=== PATIENT | female | born 1940 | race Caucasian/White ===

== ENCOUNTER 2022-03-24 14:52 | Emergency (ER) | payer MEDICARE, SELFPAY ==
[2022-03-24 15:02] VITALS: BP 107/72; BP 127/79; PULSE 102; PULSE 105; RESP 30; TEMP 36.4; O2SAT 93; BMI 16.2
--- NOTE | 2022-03-24 15:13 | MHC.CM.ED ---
Received notification from Hallie at [facility] that patient is from their facility. Referral made to [facility] via [facility] so facility can follow for d/c needs.
--- NOTE | 2022-03-24 15:27 | ED.GENADULT ---
HPI - General Adult General Chief complaint: Dyspnea <SARABJIT Rosa - Last Filed: 03/24/22 17:49> Stated complaint: LOW O2SAT,LUNG CA,FROM SNF,97% ON NEB PER EMS <SARABJIT Rosa - Last Filed: 03/24/22 17:49> Time Seen by Provider: 03/24/22 15:27 <SARABJIT Rosa - Last Filed: 03/24/22 17:49> Source: patient and EMS <SARABJIT Rosa Last Filed: 03/24/22 17:49> Mode of arrival: EMS <SARABJIT Rosa Last Filed: 03/24/22 17:49> Limitations: no limitations <SARABJIT Rosa Last Filed: 03/24/22 17:49> History of Present Illness HPI narrative: Patient is an 81 year old female presenting to the emergency department today with increased SOB. Patient states that she has a history of advanced staged lung cancer and was discharged from [facility] after having fluid drained off of her lungs. Patient denies any dizziness, lightheadedness, abdominal pain, nausea, vomiting, fever, chills, blurry vision, double vision, loss of vision, chest pain, back pain, night sweats, pain with urination, increased urinary frequency, increased urinary urgency, blood in her urine or stool, syncope or a near syncopal episode, recent trauma or falls, bowel incontinence, bladder incontinence, bowel retention, bladder retention, or any other complaints at this time. <SARABJIT Rosa - Last Filed: 03/24/22 17:49> Onset (ago): hour(s) <SARABJIT Rosa - Last Filed: 03/24/22 17:49> Exacerbating factors: none <SARABJIT Rosa - Last Filed: 03/24/22 17:49> Associated symptoms: denies other symptoms <SARABJIT Rosa - Last Filed: 03/24/22 17:49> Treatments prior to arrival: none <SARABJIT Rosa Last Filed: 03/24/22 17:49> Related Data Allergies/adverse reactions: Allergies Allergy/AdvReac Type Severity Reaction Status Date / Time No Known Allergies Allergy Verified 03/24/22 15:29 <SARABJIT Rosa - Last Filed: 03/24/22 17:49> Review of Systems Constitutional: Constitutional: Reports no additional constitutional complaints, Denies chills, Denies fever(s) and Denies night sweats <SARABJIT Rosa Last Filed: 03/24/22 17:49> Eyes: Eyes: Reports no additional eye complaints, Denies blurry vision, Denies change in vision, Denies diplopia, Denies eye discharge, Denies loss of vision and Denies eye pain <SARABJIT Rosa - Last Filed: 03/24/22 17:49> ENT: Denies dizziness <SARABJIT Rosa Last Filed: 03/24/22 17:49> Cardiovascular: Cardiovascular: Reports no additional cardiovascular complaints, Denies chest pain, Denies lightheadedness, Denies Loss of Consciousness and Reports dyspnea <SARABJIT Rosa Last Filed: 03/24/22 17:49> Respiratory: Respiratory: Reports no additional respiratory complaints and Reports dyspnea <SARABJIT Rosa - Last Filed: 03/24/22 17:49> Gastrointestinal: Gastrointestinal: Reports no additional gastrointestinal complaints, Denies abdominal pain, Denies melena, Denies hematochezia, Denies change in bowel habits and Denies change in stool character <SARABJIT Rosa Last Filed: 03/24/22 17:49> Genitourinary: Genitourinary: Denies hematuria, Denies urinary frequency, Denies dysuria, Denies urinary incontinence, Denies urinary hesitancy and Denies urinary urgency <SARABJIT Rosa Last Filed: 03/24/22 17:49> Musculoskeletal: Musculoskeletal: Reports no additional musculoskeletal complaints, Denies numbness and Denies tingling <SARABJIT Rosa - Last Filed: 03/24/22 17:49> Neurologic: Denies dizziness, Denies loss of vision, Denies numbness and Denies tingling <SARABJIT Rosa Last Filed: 03/24/22 17:49> Psychiatric: Psychiatric: Reports no additional psychiatric complaints <SARABJIT Rosa Last Filed: 03/24/22 17:49> Endocrine: Endocrine: Reports no additional endocrine complaints <SARABJIT Rosa - Last Filed: 03/24/22 17:49> Hematologic/Lymphatic: Hematologic/Lymphatic: Reports no additional hematologic/lymphatic complaints <SARABJIT Rosa - Last Filed: 03/24/22 17:49> Allergic/Immunologic: Allergic/Immunologic: Reports no additional allergic/immunologic complaints <SARABJIT Rosa - Last Filed: 03/24/22 17:49> [facility] Past Medical History Attestation statement: The following information was validated with the patient. <SARABJIT Rosa - Last Filed: 03/24/22 17:49> Source: old records reviewed <SARABJIT Rosa - Last Filed: 03/24/22 17:49> Social History Social History: Social History Advance Directives: No Advance Directives Information Provided: No <SARABJIT Rosa - Last Filed: 03/24/22 17:49> Physical Exam ED Vital Signs: Vital Signs - 24 hr 03/24/22 15:02 03/24/22 17:04 03/24/22 18:00 Temperature 97.5 F Pulse Rate 102 H 105 H 102 H Respiratory Rate 30 H 24 H 20 Blood Pressure 107/72 97/73 126/73 Pulse Oximetry 93 94 92 03/24/22 18:09 03/24/22 22:10 03/25/22 01:10 Temperature Pulse Rate 102 H Respiratory Rate 16 20 24 H Blood Pressure 93/64 Pulse Oximetry 90 L 03/25/22 06:34 03/25/22 06:36 Temperature 0 F L Pulse Rate Respiratory Rate 8 L 8 L Blood Pressure 000/00 L Pulse Oximetry BMI result Body Mass Index 16.2 <SARABJIT Rosa - Last Filed: 03/24/22 17:49> Vital Signs - 24 hr 03/24/22 15:02 03/24/22 17:04 03/24/22 18:00 Temperature 97.5 F Pulse Rate 102 H 105 H 102 H Respiratory Rate 30 H 24 H 20 Blood Pressure 107/72 97/73 126/73 Pulse Oximetry 93 94 92 03/24/22 18:09 03/24/22 22:10 03/25/22 01:10 Temperature Pulse Rate 102 H Respiratory Rate 16 20 24 H Blood Pressure 93/64 Pulse Oximetry 90 L 03/25/22 06:34 03/25/22 06:36 Temperature 0 F L Pulse Rate Respiratory Rate 8 L 8 L Blood Pressure 000/00 L Pulse Oximetry BMI result Body Mass Index 16.2 <Reji Lares MD - Last Filed: 03/24/22 20:30> Const General: cooperative, no acute distress, alert and awake <SARABJIT Rosa - Last Filed: 03/24/22 17:49> Nutritional Appearance: well nourished <SARABJIT Rosa - Last Filed: 03/24/22 17:49> Orientation/consciousness: patient oriented x3 <SARABJIT Rosa - Last Filed: 03/24/22 17:49> Limitations: no limitations <SARABJIT Rosa - Last Filed: 03/24/22 17:49> HENMT Head: Yes normal to inspection and Yes atraumatic <SARABJIT Rosa - Last Filed: 03/24/22 17:49> Ears: hearing grossly normal bilaterally and external ears normal <SARABJIT Rosa - Last Filed: 03/24/22 17:49> General nose exam: Normal external nose present, no nasal discharge noted and no epistaxis <SARABJIT Rosa - Last Filed: 03/24/22 17:49> Face and sinus: Yes normal facial exam, No abrasion and No laceration <SARABJIT Rosa - Last Filed: 03/24/22 17:49> Mouth: Normal oral and palatal mucosa present, no drooling and no muffled voice <SARABJIT Rosa - Last Filed: 03/24/22 17:49> Eyes General: appearance normal, both eyes and all related structures <SARABJIT Rosa - Last Filed: 03/24/22 17:49> Periorbital: periorbital findings normal <SARABJIT Rosa - Last Filed: 03/24/22 17:49> Eyelids: Yes eyelids normal <SARABJIT Rosa - Last Filed: 03/24/22 17:49> Conjunctivae: conjunctivae normal <SARABJIT Rosa - Last Filed: 03/24/22 17:49> Pupils: Equal, round and reactive pupils present <SARABJIT Rosa - Last Filed: 03/24/22 17:49> EOM: EOMs intact bilaterally <Arabella Mayberry PA - Last Filed: 03/24/22 17:49> Neck Neck: Yes normal visual inspection, Yes full ROM and Yes no lymphadenopathy <Arabella Mayberry PA - Last Filed: 03/24/22 17:49> Chest Chest palpation & inspection: normal inspection of the chest <Arabella Mayberry PA - Last Filed: 03/24/22 17:49> Resp Effort & Inspection: labored and uses accessory muscles <Arabella Mayberry PA - Last Filed: 03/24/22 17:49> Auscultation: crackles <Arabella Mayberry PA - Last Filed: 03/24/22 17:49> Cardio Rate: tachycardic <Arabella Mayberry PA - Last Filed: 03/24/22 17:49> Rhythm: regular rhythm <Arabella Mayberry PA - Last Filed: 03/24/22 17:49> GI Inspection: Yes normal to inspection <Arabella Mayberry PA - Last Filed: 03/24/22 17:49> Neuro General: patient oriented x3 and moves all extremities <Arabella Mayberry PA - Last Filed: 03/24/22 17:49> Cranial nerves: Yes Equal, round and reactive pupils present <Arabella Mayberry PA - Last Filed: 03/24/22 17:49> Cognition (Neuro): normal cognition <Arabella Mayberry PA - Last Filed: 03/24/22 17:49> Motor exam (neuro): 5/5 motor strength present throughout <Arabella Mayberry PA - Last Filed: 03/24/22 17:49> Sensory Exam: Normal double simultaneous stimulation for sensation <Arabella Mayberry PA - Last Filed: 03/24/22 17:49> Coordination: [id number] test normal <Arabella Mariejed PA - Last Filed: 03/24/22 17:49> Extrem General: Yes normal to inspection, Yes full ROM and Yes capillary refill normal <Arabella Mariejed PA - Last Filed: 03/24/22 17:49> Psych Appearance: grossly normal <Arabella Mariejed PA - Last Filed: 03/24/22 17:49> Mental Status: mental status grossly normal <SARABJIT Rosa - Last Filed: 03/24/22 17:49> Affect: normal affect <SARABJIT Rosa - Last Filed: 03/24/22 17:49> Attitude: cooperative <SARABJIT Rosa - Last Filed: 03/24/22 17:49> Thought process: Normal thought process present <SARABJIT Rosa - Last Filed: 03/24/22 17:49> Thought content: Normal thought content present <SARABJIT Rosa - Last Filed: 03/24/22 17:49> Insight: Good insight present (Psych) <SARABJIT Rosa - Last Filed: 03/24/22 17:49> Course Reevaluation(s) Reevaluation #1: I spent 30 minutes with the patient discussing her options, in the end she wants to be comfortable and agreed to sign the Molst as she does not want any invasive procedures <Reji Lares MD - Last Filed: 03/24/22 20:30> Time: 17:50 <Reji Lares MD - Last Filed: 03/24/22 20:30> Reevaluation #2: Hospice can't be placed to morning <Reji Lares MD - Last Filed: 03/24/22 20:30> Time: 20:30 <Reji Lares MD - Last Filed: 03/24/22 20:30> Medical Decision Making MDM Narrative Medical decision making narrative: Patient is an 81 year old female presenting to the emergency department today with increased SOB. Patient's physical exam showed diffuse crackles and increased work of breathing. Patient was on 4L of Oxygen via NC which kept her saturation above 95%. Patient's blood work showed an elevated WBC count, elevated potassium at 5.7, elevated creatinine at 2.02, lactic acid of 2.5, and an elevated troponin of 38. Patient refused chest x-ray. I explained my physical exam findings as well as all test results to the patient. I answered all questions asked by the patient. Patient was initially wanting only certain things done. After extensive conversation with myself and my attending physician, Dr. Lares, the patient agreed to be comfort measures only. Patient has signed a new DNR/DNI form. CM to confirm patient may be able to go back to her original SNF for comfort measures only. <SARABJIT Rosa - Last Filed: 03/24/22 17:49> Differential Diagnosis Differential Diagnosis: lung cancer, pleural effusions <SARABJIT Rosa - Last Filed: 03/24/22 17:49> Medical Records Medical records reviewed: Yes I reviewed the patient's medical records. <SARABJIT Rosa - Last Filed: 03/24/22 17:49> Lab Data Lab results reviewed: Yes I reviewed the patient's lab results. <SARABJIT Rosa - Last Filed: 03/24/22 17:49> Result diagrams: : 03/24/22 16:13 03/24/22 16:13 <SARABJIT Rosa - Last Filed: 03/24/22 17:49> Labs: Lab Results 03/24/22 03/24/22 03/24/22 Range/Units 16:13 16:13 16:13 WBC 14.5 H (4.8-10.8) X10*3/uL RBC 4.69 (4.20-5.50) X10*6/uL Hgb 13.6 (12.0-16.0) g/dl Hct 43.3 (37.0-47.0) % MCV 92.3 (80.0-98.0) fL MCH 29.0 (27.0-33.0) pg MCHC 31.4 (31.0-35.0) g/dl RDW 14.7 (11.0-16.0) % Plt Count 297 (160-400) X10*3/uL MPV 9.8 (9.4-12.3) fL Immature Gran % (Auto) 0.7 H (0.0-0.4) % Neut % (Auto) 89.3 H (45-73) % Lymph % (Auto) 4.4 L (20-40) % Sully % (Auto) 5.5 (2-11) % Eos % (Auto) 0.0 (0-4) % Baso % (Auto) 0.1 (0-2) % Lymph # (Auto) 0.6 L (1.2-4.9) X10*3/uL Sully # (Auto) 0.8 (0.1-1.2) X10*3/uL Eos # (Auto) 0.0 (0.0-0.4) X10*3/uL Baso # (Auto) 0.0 (0.0-0.2) X10*3/uL Abs Immat Gran (auto) 0.10 H (0.00-0.03) X10*3/uL Absolute Neuts (auto) 12.9 H (2.0-8.3) x10*3/uL Absolute Nucleated RBC 0.000 (0.0-0.012) X10*3/uL Nucleated RBC % (auto) 0.0 (0.0-0.2) /100WBC VBG pH (7.32-7.43) VBG pCO2 mmHg VBG pO2 mmHg VBG HCO3 (22-26) mmol/L VBG O2 Saturation % VBG Base Excess mmol/L Sodium 140 (135-145) mmol/L Potassium 5.7 H (3.3-5.1) mmol/L Chloride 105 (96-108) mmol/L Carbon Dioxide 20 L (22-29) mmol/L Anion Gap 21 H (12-20) BUN 67 H (9-16) mg/dL Creatinine 2.02 H (0.5-1.4) mg/dL Estim Creat Clear Calc 14.8 Estimated GFR 24 Random Glucose 90 (60-115) mg/dL Lactic Acid 2.5 H* (0.5-2.0) mmol/L Calcium 9.4 (8.4-10.2) mg/dL Total Bilirubin 0.6 (0.0-1.0) mg/dL AST 41 H (5-31) U/L ALT 34 H (0-31) U/L Alkaline Phosphatase 70 (39-117) U/L Troponin I High Sens (<3.5-17.0) ng/L Total Protein 5.6 L (6.5-8.0) g/dL Albumin 2.8 L (3.5-5.0) g/dL COVID-19 ([facility]) (Negative) COVID-19 Clin Com Influenza Type A ([facility]) (Negative) Influenza Type B (CASPER) (Negative) Influenza A & B Note 05/04/22 05/04/22 05/04/22 Range/Units 16:13 16:13 16:13 WBC (4.8-10.8) X10*3/uL RBC (4.20-5.50) X10*6/uL Hgb (12.0-16.0) g/dl Hct (37.0-47.0) % MCV (80.0-98.0) fL MCH (27.0-33.0) pg MCHC (31.0-35.0) g/dl RDW (11.0-16.0) % Plt Count (160-400) X10*3/uL MPV (9.4-12.3) fL Immature Gran % (Auto) (0.0-0.4) % Neut % (Auto) (45-73) % Lymph % (Auto) (20-40) % Sully % (Auto) (2-11) % Eos % (Auto) (0-4) % Baso % (Auto) (0-2) % Lymph # (Auto) (1.2-4.9) X10*3/uL Sully # (Auto) (0.1-1.2) X10*3/uL Eos # (Auto) (0.0-0.4) X10*3/uL Baso # (Auto) (0.0-0.2) X10*3/uL Abs Immat Gran (auto) (0.00-0.03) X10*3/uL Absolute Neuts (auto) (2.0-8.3) x10*3/uL Absolute Nucleated RBC (0.0-0.012) X10*3/uL Nucleated RBC % (auto) (0.0-0.2) /100WBC VBG pH (7.32-7.43) VBG pCO2 mmHg VBG pO2 mmHg VBG HCO3 (22-26) mmol/L VBG O2 Saturation % VBG Base Excess mmol/L Sodium (135-145) mmol/L Potassium (3.3-5.1) mmol/L Chloride (96-108) mmol/L Carbon Dioxide (22-29) mmol/L Anion Gap (12-20) BUN (9-16) mg/dL Creatinine (0.5-1.4) mg/dL Estim Creat Clear Calc Estimated GFR Random Glucose (60-115) mg/dL Lactic Acid (0.5-2.0) mmol/L Calcium (8.4-10.2) mg/dL Total Bilirubin (0.0-1.0) mg/dL AST (5-31) U/L ALT (0-31) U/L Alkaline Phosphatase (39-117) U/L Troponin I High Sens 38.0 H (<3.5-17.0) ng/L Total Protein (6.5-8.0) g/dL Albumin (3.5-5.0) g/dL COVID-19 ([facility]) Negative (Negative) COVID-19 Clin Com See Note Influenza Type A ([facility]) Negative (Negative) Influenza Type B (CASPER) Negative (Negative) Influenza A & B Note See Note 03/24/22 Range/Units 16:20 WBC (4.8-10.8) X10*3/uL RBC (4.20-5.50) X10*6/uL Hgb (12.0-16.0) g/dl Hct (37.0-47.0) % MCV (80.0-98.0) fL MCH (27.0-33.0) pg MCHC (31.0-35.0) g/dl RDW (11.0-16.0) % Plt Count (160-400) X10*3/uL MPV (9.4-12.3) fL Immature Gran % (Auto) (0.0-0.4) % Neut % (Auto) (45-73) % Lymph % (Auto) (20-40) % Sully % (Auto) (2-11) % Eos % (Auto) (0-4) % Baso % (Auto) (0-2) % Lymph # (Auto) (1.2-4.9) X10*3/uL Sully # (Auto) (0.1-1.2) X10*3/uL Eos # (Auto) (0.0-0.4) X10*3/uL Baso # (Auto) (0.0-0.2) X10*3/uL Abs Immat Gran (auto) (0.00-0.03) X10*3/uL Absolute Neuts (auto) (2.0-8.3) x10*3/uL Absolute Nucleated RBC (0.0-0.012) X10*3/uL Nucleated RBC % (auto) (0.0-0.2) /100WBC VBG pH 7.38 (7.32-7.43) VBG pCO2 29 mmHg VBG pO2 130 mmHg VBG HCO3 17 L (22-26) mmol/L VBG O2 Saturation 99.0 % VBG Base Excess -5.8 mmol/L Sodium (135-145) mmol/L Potassium (3.3-5.1) mmol/L Chloride (96-108) mmol/L Carbon Dioxide (22-29) mmol/L Anion Gap (12-20) BUN (9-16) mg/dL Creatinine (0.5-1.4) mg/dL Estim Creat Clear Calc Estimated GFR Random Glucose (60-115) mg/dL Lactic Acid (0.5-2.0) mmol/L Calcium (8.4-10.2) mg/dL Total Bilirubin (0.0-1.0) mg/dL AST (5-31) U/L ALT (0-31) U/L Alkaline Phosphatase (39-117) U/L Troponin I High Sens (<3.5-17.0) ng/L Total Protein (6.5-8.0) g/dL Albumin (3.5-5.0) g/dL COVID-19 ([facility]) (Negative) COVID-19 Clin Com Influenza Type A ([facility]) (Negative) Influenza Type B ([facility]PER) (Negative) Influenza A & B Note <SARABJIT Rosa - Last Filed: 03/24/22 17:49> Lab Results 03/24/22 03/24/22 03/24/22 Range/Units 16:13 16:13 16:13 WBC 14.5 H (4.8-10.8) X10*3/uL RBC 4.69 (4.20-5.50) X10*6/uL Hgb 13.6 (12.0-16.0) g/dl Hct 43.3 (37.0-47.0) % MCV 92.3 (80.0-98.0) fL MCH 29.0 (27.0-33.0) pg MCHC 31.4 (31.0-35.0) g/dl RDW 14.7 (11.0-16.0) % Plt Count 297 (160-400) X10*3/uL MPV 9.8 (9.4-12.3) fL Immature Gran % (Auto) 0.7 H (0.0-0.4) % Neut % (Auto) 89.3 H (45-73) % Lymph % (Auto) 4.4 L (20-40) % Sully % (Auto) 5.5 (2-11) % Eos % (Auto) 0.0 (0-4) % Baso % (Auto) 0.1 (0-2) % Lymph # (Auto) 0.6 L (1.2-4.9) X10*3/uL Sully # (Auto) 0.8 (0.1-1.2) X10*3/uL Eos # (Auto) 0.0 (0.0-0.4) X10*3/uL Baso # (Auto) 0.0 (0.0-0.2) X10*3/uL Abs Immat Gran (auto) 0.10 H (0.00-0.03) X10*3/uL Absolute Neuts (auto) 12.9 H (2.0-8.3) x10*3/uL Absolute Nucleated RBC 0.000 (0.0-0.012) X10*3/uL Nucleated RBC % (auto) 0.0 (0.0-0.2) /100WBC VBG pH (7.32-7.43) VBG pCO2 mmHg VBG pO2 mmHg VBG HCO3 (22-26) mmol/L VBG O2 Saturation % VBG Base Excess mmol/L Sodium 140 (135-145) mmol/L Potassium 5.7 H (3.3-5.1) mmol/L Chloride 105 (96-108) mmol/L Carbon Dioxide 20 L (22-29) mmol/L Anion Gap 21 H (12-20) BUN 67 H (9-16) mg/dL Creatinine 2.02 H (0.5-1.4) mg/dL Estim Creat Clear Calc 14.8 Estimated GFR 24 Random Glucose 90 (60-115) mg/dL Lactic Acid 2.5 H* (0.5-2.0) mmol/L Calcium 9.4 (8.4-10.2) mg/dL Total Bilirubin 0.6 (0.0-1.0) mg/dL AST 41 H (5-31) U/L ALT 34 H (0-31) U/L Alkaline Phosphatase 70 (39-117) U/L Troponin I High Sens (<3.5-17.0) ng/L Total Protein 5.6 L (6.5-8.0) g/dL Albumin 2.8 L (3.5-5.0) g/dL COVID-19 ([facility]) (Negative) COVID-19 Clin Com Influenza Type A ([facility]) (Negative) Influenza Type B ([facility]) (Negative) Influenza A & B Note 03/24/22 03/24/22 03/24/22 Range/Units 16:13 16:13 16:13 WBC (4.8-10.8) X10*3/uL RBC (4.20-5.50) X10*6/uL Hgb (12.0-16.0) g/dl Hct (37.0-47.0) % MCV (80.0-98.0) fL MCH (27.0-33.0) pg MCHC (31.0-35.0) g/dl RDW (11.0-16.0) % Plt Count (160-400) X10*3/uL MPV (9.4-12.3) fL Immature Gran % (Auto) (0.0-0.4) % Neut % (Auto) (45-73) % Lymph % (Auto) (20-40) % Sully % (Auto) (2-11) % Eos % (Auto) (0-4) % Baso % (Auto) (0-2) % Lymph # (Auto) (1.2-4.9) X10*3/uL Sully # (Auto) (0.1-1.2) X10*3/uL Eos # (Auto) (0.0-0.4) X10*3/uL Baso # (Auto) (0.0-0.2) X10*3/uL Abs Immat Gran (auto) (0.00-0.03) X10*3/uL Absolute Neuts (auto) (2.0-8.3) x10*3/uL Absolute Nucleated RBC (0.0-0.012) X10*3/uL Nucleated RBC % (auto) (0.0-0.2) /100WBC VBG pH (7.32-7.43) VBG pCO2 mmHg VBG pO2 mmHg VBG HCO3 (22-26) mmol/L VBG O2 Saturation % VBG Base Excess mmol/L Sodium (135-145) mmol/L Potassium (3.3-5.1) mmol/L Chloride (96-108) mmol/L Carbon Dioxide (22-29) mmol/L Anion Gap (12-20) BUN (9-16) mg/dL Creatinine (0.5-1.4) mg/dL Estim Creat Clear Calc Estimated GFR Random Glucose (60-115) mg/dL Lactic Acid (0.5-2.0) mmol/L Calcium (8.4-10.2) mg/dL Total Bilirubin (0.0-1.0) mg/dL AST (5-31) U/L ALT (0-31) U/L Alkaline Phosphatase (39-117) U/L Troponin I High Sens 38.0 H (<3.5-17.0) ng/L Total Protein (6.5-8.0) g/dL Albumin (3.5-5.0) g/dL COVID-19 ([facility]) Negative (Negative) COVID-19 Clin Com See Note Influenza Type A ([facility]) Negative (Negative) Influenza Type B ([facility]) Negative (Negative) Influenza A & B Note See Note 03/24/22 Range/Units 16:20 WBC (4.8-10.8) X10*3/uL RBC (4.20-5.50) X10*6/uL Hgb (12.0-16.0) g/dl Hct (37.0-47.0) % MCV (80.0-98.0) fL MCH (27.0-33.0) pg MCHC (31.0-35.0) g/dl RDW (11.0-16.0) % Plt Count (160-400) X10*3/uL MPV (9.4-12.3) fL Immature Gran % (Auto) (0.0-0.4) % Neut % (Auto) (45-73) % Lymph % (Auto) (20-40) % Sully % (Auto) (2-11) % Eos % (Auto) (0-4) % Baso % (Auto) (0-2) % Lymph # (Auto) (1.2-4.9) X10*3/uL Sully # (Auto) (0.1-1.2) X10*3/uL Eos # (Auto) (0.0-0.4) X10*3/uL Baso # (Auto) (0.0-0.2) X10*3/uL Abs Immat Gran (auto) (0.00-0.03) X10*3/uL Absolute Neuts (auto) (2.0-8.3) x10*3/uL Absolute Nucleated RBC (0.0-0.012) X10*3/uL Nucleated RBC % (auto) (0.0-0.2) /100WBC VBG pH 7.38 (7.32-7.43) VBG pCO2 29 mmHg VBG pO2 130 mmHg VBG HCO3 17 L (22-26) mmol/L VBG O2 Saturation 99.0 % VBG Base Excess -5.8 mmol/L Sodium (135-145) mmol/L Potassium (3.3-5.1) mmol/L Chloride (96-108) mmol/L Carbon Dioxide (22-29) mmol/L Anion Gap (12-20) BUN (9-16) mg/dL Creatinine (0.5-1.4) mg/dL Estim Creat Clear Calc Estimated GFR Random Glucose (60-115) mg/dL Lactic Acid (0.5-2.0) mmol/L Calcium (8.4-10.2) mg/dL Total Bilirubin (0.0-1.0) mg/dL AST (5-31) U/L ALT (0-31) U/L Alkaline Phosphatase (39-117) U/L Troponin I High Sens (<3.5-17.0) ng/L Total Protein (6.5-8.0) g/dL Albumin (3.5-5.0) g/dL COVID-19 ([facility]) (Negative) COVID-19 Clin Com Influenza Type A ([facility]) (Negative) Influenza Type B ([facility]) (Negative) Influenza A & B Note <Reji Lares MD - Last Filed: 03/24/22 20:30> ECG Data Attestation: I personally reviewed and interpreted this ECG as follows: <SARABJIT Rosa - Last Filed: 03/24/22 17:49> Prior ECG tracings: not available for review <SARABJIT Rosa - Last Filed: 03/24/22 17:49> Interpretation: Vent. Rate: 104 BPM ? ? Atrial Rate: 104 BPM P-R Int: 176 ms? QRS Dur: 068 ms QT Int: 306 ms ? ? ? P-R-T Axes: 058 056 043 degrees QTc Int: 402 ms ? Sinus tachycardia with Premature atrial complexes Low voltage QRS Borderline ECG No previous ECGs available DD/ 1531 <SARABJIT Rosa - Last Filed: 03/24/22 17:49> Discharge Plan Discharge Clinical Impression: Lung cancer, Comfort measures only status <SARABJIT Rosa - Last Filed: 03/24/22 17:49> Patient Disposition: Xfer SNF <SARABJIT Rosa - Last Filed: 03/24/22 17:49> Transfer Details: Transfer back to original SNF after confirmation of hospice/comfort care <SARABJIT Rosa - Last Filed: 03/24/22 17:49> Transfer back to original SNF after confirmation of hospice/comfort care <Reji Lares MD - Last Filed: 03/24/22 20:30> Instructions: and Dying (DC) <SARABJIT Rosa - Last Filed: 03/24/22 17:49> Additional Instructions: Follow up with your primary care provider. <SARABJIT Rosa - Last Filed: 03/24/22 17:49> Referrals: NEELIMA SPENCE [Primary Care Provider] - <SARABJIT Rosa - Last Filed: 03/24/22 17:49> Print Language: Vincentian <SARABJIT Rosa - Last Filed: 03/24/22 17:49>
--- NOTE | 2022-03-24 15:31 | ECG_ITS ---
Test Reason : SOB Blood Pressure : / mmHG Vent. Rate : 104 BPM Atrial Rate : 104 BPM P-R Int : 176 ms QRS Dur : 068 ms QT Int : 306 ms P-R-T Axes : 058 056 043 degrees QTc Int : 402 ms Sinus tachycardia with Premature atrial complexes Low voltage QRS Borderline ECG No previous ECGs available Referred By: Arabella Mayberry Electronically Signed By:Vincent Clark
[2022-03-24 16:23] LABS: MANUAL DIFF FLAG NO
[2022-03-24 16:25] LABS: Basophils Percent Auto 0.1 % (0-2); Hematocrit 43.3 % (37.0-47.0); Hemoglobin 13.6 g/dl (12.0-16.0); Imm Gran Pct Auto 0.7 % (0.0-0.4); Lymphocytes Absolute Auto 0.6 X10*3/uL (1.2-4.9); Lymphocytes Percent Auto 4.4 % (20-40); Mean Corpuscular HGB Conc 31.4 g/dl (31.0-35.0); Mean Corpuscular Volume 92.3 fL (80.0-98.0); Mean Platelet Volume 9.8 fL (9.4-12.3); Monocytes Absolute Auto 0.8 X10*3/uL (0.1-1.2); Monocytes Percent Auto 5.5 % (2-11); Neutrophils Absolute Auto 12.9 x10*3/uL (2.0-8.3); Neutrophils Percent Auto 89.3 % (45-73); Platelet Count 297 X10*3/uL (160-400); Red Blood Count 4.69 X10*6/uL (4.20-5.50); Red Cell Distribution Width 14.7 % (11.0-16.0); White Blood Count 14.5 X10*3/uL (4.8-10.8)
[2022-03-24 16:28] LABS: VBG Base Excess -5.8 mmol/L; VBG HCO3 17 mmol/L (22-26); VBG pCO2 29 mmHg; VBG pH 7.38 (7.32-7.43); VBG pO2 130 mmHg
[2022-03-24 16:28] LABS: Venous Blood Gas Refer to POC result
[2022-03-24 16:42] LABS: COVID-19 Test Negative (Negative); Lactic Acid 2.5 mmol/L (0.5-2.0)
[2022-03-24 16:44] LABS: IDNOW Serial# 08D9AD1C; Influenza A Negative (Negative); Influenza B2 Negative (Negative)
[2022-03-24 16:45] LABS: Alanine Aminotransferase 34 U/L (0-31); Albumin Level 2.8 g/dL (3.5-5.0); Alkaline Phosphatase 70 U/L (39-117); Anion Gap 21 (12-20); Aspartate Amino Transferase 41 U/L (5-31); Bilirubin Total 0.6 mg/dL (0.0-1.0); Blood Urea Nitrogen 67 mg/dL (9-16); Calcium 9.4 mg/dL (8.4-10.2); Carbon Dioxide 20 mmol/L (22-29); Chloride 105 mmol/L (96-108); Creatinine Clr Calc Pharmacy 14.8; Estimated Glomerular Filt Rate 24; Glucose Random 90 mg/dL (60-115); Potassium 5.7 mmol/L (3.3-5.1); Sodium 140 mmol/L (135-145); Total Protein 5.6 g/dL (6.5-8.0)
[2022-03-24 17:04] VITALS: BP 97/73; PULSE 105; RESP 24; O2SAT 94
[2022-03-24 18:00] VITALS: BP 126/73; PULSE 102; RESP 20; O2SAT 92
[2022-03-24 18:09] VITALS: RESP 16
[2022-03-24] MEDS: Morphine Sulfate 4 MG/ML CARTRIDGE IVPUSH (18:09)
--- NOTE | 2022-03-24 18:13 | PC.NURSE ---
pt alert and oriented to self, audible wheezing/congestion, increased respiratory effort - pt open mouth breathing, pt @ 92% on 4L O2. medicated per provider order.
[2022-03-24 18:20] LABS: Reflex Lactate? Lactic Acid Added
--- NOTE | 2022-03-24 19:27 | MHC.CM.ED ---
CM met with patient at request of Arabella WHIPPLE. Pt with advanced lung cancer and appears to be at the end of life. Was at [facility] for STR. Was living at [address] [place] [address] in [place]. Per her outsole caser/HCP Guillermo Bliss, pt rents a room in this home. Pt refused all care when she arrived to the emergency room. Pt completed a MOLST with Dr. Lares, with CM attendance. Pt understands that she will be made comfortable with use of medications. Pt states she feels safe here. 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 Per [facility], pt return has been accepted. Pt given Morphine. Pt condition poor. Per Dr. Lares, pt to remain in ED at this time, as she is in the dying process. CM called Guillermo ([phone]) and discussed patient condition and MOLST completion. Guillermo will be in to see patient tonight. CM will follow for d/c needs.
--- NOTE | 2022-03-24 20:01 | MHC.CM.ED ---
Guillermo, HCP/block and case maker, is here with patient. Per Guillermo, pt was originally from [place] and came to this area in search of a cousin, whom she did not find. Jacqueline ended up in a custodial and from there became a resident of [facility], [facility] [place]. Guillermo tells CM that patient travelled with the circus. Pt has hx of mental illness and paranoia. States Jacqueline has always been fearful of medicine and medical care. Jacqueline is distrustful of xrays. Guillermo tells CM that pt has declined very quickly in the past week since she has seen her. Pt refused to have any treatment when she was diagnosed with advanced lung cancer, but was fearful to sign any documents regarding her code status at that time. Guillermo tells CM that Jacqueline had written a paper that explained her wishes not to be resuscitated and to have any medical treatment for her cancer. Guillermo tells CM she has documentation of the HCP. Pt remains minimally responsive, breathing with short periods of apnea. Appears comfortable. CM to follow for d/c needs.
--- NOTE | 2022-03-24 21:46 | MHC.CM.ED ---
Per Dr. Lares, pt to remain in ED overnight. If no change in condition in the morning, will transport back to [facility] with hospice in place. Referral placed to [facility]. Hospice medications not yet ordered. Will need scripts. Hospice medication recommendations with patient chart. CM to follow for d/c
[2022-03-24 22:10] VITALS: RESP 20
--- NOTE | 2022-03-25 00:07 | PC.NURSE ---
pt is sleeping at this time. pt repositioned for comfort. Will continue to monitor
[2022-03-25 01:10] VITALS: BP 93/64; PULSE 102; RESP 24; O2SAT 90
[2022-03-25] MEDS: Scopolamine 1.5 MG PATCH.TD.3 EAR-BEHIND (02:14)
[2022-03-25] MEDS: Morphine Sulfate 4 MG/ML CARTRIDGE IVPUSH ×2 (02:15→06:34)
[2022-03-25] MEDS: ondansetron HCL 4 MG/2 ML VIAL IVPUSH (02:15)
--- NOTE | 2022-03-25 04:08 | PC.NURSE ---
pt is repositioned for comfort.
[2022-03-25 06:34] VITALS: RESP 8
[2022-03-25 06:36] VITALS: BP 000/00; RESP 8; TEMP -17.7; TEMP 0
--- NOTE | 2022-03-25 06:37 | PC.NURSE ---
pt medicated for end of life. staff at bedside pt is not alone. rr 8 to 6.
--- NOTE | 2022-03-25 06:52 | PC.NURSE ---
Notified organ bank at 6:40. Pt was declined.
--- NOTE | 2022-03-25 09:06 | MHC.CM.ED ---
Patient this morning. [facility] and [facility] made aware. Per Dr Russell, patient's primary contact, Guillermo, is a case folder. She isn't sure what is the next step to take. T/W reached out via telephone at [phone]. Explained patient has [employer]. Some homes will access [employer] benefits for cremation. Guillermo is going to find a home and call [facility] bumper operator with that home name.
== END 2022-03-25 09:35 | disposition expired ==
PROVIDERS: Physician Assistant Medical; Emergency Provider Internal Medicine; PCP Emergency Medicine
DX: J96.91 Respiratory failure, unspecified with hypoxia (principal); C34.90 Malignant neoplasm of unspecified part of unspecified bronchus or lung; E87.5 Hyperkalemia; Z51.5 Encounter for palliative care; Z66 Do not resuscitate; Z20.822 Contact with and (suspected) exposure to COVID-19
CPT/HCPCS: 80053; 82803; 83605; 84484; 85025; 87040; 87502; 87635; 93005; 96374; 96375; 96376; 99285; J2270; J2405